=== PATIENT | male | born 1965 | race Caucasian/White ===

== ENCOUNTER 2025-01-09 13:13 | Emergency (ER) | payer OTHER, SELFPAY ==
[~2025-01-09] VITALS: Ht 170.2 cm; Wt 65.1 kg
[2025-01-09 13:25] VITALS: TEMP 97.5
[2025-01-09 18:58] VITALS: BP 172/98; O2SAT 100
== END 2025-01-09 22:00 | disposition left against medical advice (07) ==
LOC: M ED 13:13
DX: Z53.21 Procedure and treatment not carried out due to patient leaving prior to being seen by health care provider (principal)

== ENCOUNTER 2025-02-05 10:05 | Inpatient (IN) | payer MEDICAID, SELFPAY ==
[~2025-02-05] VITALS: Ht 175.3 cm; Wt 65.1 kg
[2025-02-05] MEDS ORDERED: OVERDOSE RESCUE KIT XX SCH (10:15)
[2025-02-05] MEDS: NS 500 ML IV ONE (11:20)
[2025-02-05 11:53] LABS: BASO % 0.3 % (0.0-1.0); EOS # 0.1 10^3/uL (0.0-0.5); EOS % 0.3 % (0.0-3.0); HEMATOCRIT 38.6 % (42.0-52.0); HEMOGLOBIN 12.1 g/dl (13.5-17.5); LYMPH % 6.8 % (24.0-44.0); MEAN CORPUSCULAR HEMOGLOBIN 28.1 pg (27.0-33.0); MEAN CORPUSCULAR HGB CONC 31.3 g/dl (32.0-36.5); MEAN CORPUSCULAR VOLUME 89.8 fl (80.0-96.0); MONO # 1.3 10^3/uL (0.0-0.8); MONO % 8.4 % (2.0-8.0); NEUTROPHILS # 12.5 10^3/uL (1.5-8.5); NEUTROPHILS % 83.7 % (36.0-66.0); PLATELET COUNT, AUTOMATED 364 10^3/uL (150-450); WHITE BLOOD COUNT 14.9 10^3/uL (4.0-10.0)
[2025-02-05 12:20] LABS: ALBUMIN 3.2 G/DL (3.2-5.2); ALKALINE PHOSPHATASE 90 U/L (40-129); ALT/SGPT 37 U/L (7.0-40); AST/SGOT 34 U/L (<34); BILIRUBIN,TOTAL 0.2 MG/DL (0.3-1.2); BLOOD UREA NITROGEN 19 MG/DL (9-23); CALCIUM LEVEL 8.4 MG/DL (8.3-10.6); CARBON DIOXIDE LEVEL 27 MMOL/L (20-31); CHLORIDE LEVEL 108 MMOL/L (98-107); CREATININE FOR GFR 0.93 MG/DL (0.70-1.30); GLOMERULAR FILTRATION RATE > 60.0 (>49); GLUCOSE, FASTING 65 MG/DL (74-106); MAGNESIUM LEVEL 2.1 MG/DL (1.8-2.4); POTASSIUM SERUM 4.5 MMOL/L (3.5-5.1); SODIUM LEVEL 143 MMOL/L (136-145); TOTAL PROTEIN 6.3 G/DL (5.7-8.2)
[2025-02-05 12:24] LABS: FREE THYROXINE INDEX 2.4 % (1.4-3.8); T UPTAKE 34.3 % (22.5-37.0); THYROXINE (T4) 7.1 UG/DL (4.5-10.9)
[2025-02-05 12:25] LABS: THYROID STIMULATING HORMONE 4.581 uIU/ML (0.55-4.78)
[2025-02-05] MEDS: [UNRECOGNIZED DRUG - OTHER] IV ONE (13:16)
[2025-02-05] MEDS: cefTRIAXone SOD 2 GM in DEXTROSE 5% (D5W) ADV/MINI-BAG 50 ML IV ONE (13:16)
[2025-02-05] MEDS: NS 0.9% IV ONE (13:16)
[2025-02-05] MEDS ORDERED: ISOVUE-370 76% 100ML VIAL As Ordered ONE (13:18)
[2025-02-05] MEDS ORDERED: HOME MED LIST COMPLETE! XX SCH (14:50)
[2025-02-05] MEDS: VANCOMYCIN HCL 1,250 MG, VIAL MATE ADAPTER 1 EACH in NS 250 ML IV ONE (15:08)
[2025-02-05 15:51] LABS: BARBITURATES URINE NEGATIVE (NEGATIVE); BENZODIAZEPINES URINE NEGATIVE (NEGATIVE); CANNABINOIDS URINE NEGATIVE (NEGATIVE); COCAINE METABOLITE URINE NEGATIVE (NEGATIVE); METHADONE URINE NEGATIVE (NEGATIVE); OPIATES URINE NEGATIVE (NEGATIVE); PHENCYCLIDINE URINE NEGATIVE (NEGATIVE)
[2025-02-05 15:53] LABS: AMPHETAMINES LEVEL URINE POSITIVE (NEGATIVE)
[2025-02-05] MEDS ORDERED: MAALOX 30 ML SUSP *UDC PO PRN (17:15)
[2025-02-05] MEDS ORDERED: MOM 30ML SUSPENSION UDC PO PRN (17:15)
[2025-02-05] MEDS: PIPERACILLIN/TAZOBACTAM SOD 4.5 GM in DEXTROSE 5% (D5W) ADV/MINI-BAG 50 ML IV SCH (18:00)
[2025-02-05 19:08] LABS: PROCALCITONIN 0.05 ng/ml
[2025-02-05] MEDS: LR 1,000 ML IV SCH (19:54)
[2025-02-05 20:51] VITALS: BP 104/64; TEMP 97.3; O2SAT 93
[2025-02-05] MEDS ORDERED: VANCOMYCIN HCL 1,000 MG, VIAL MATE ADAPTER 1 EACH in NS 250 ML IV SCH (22:00)
[2025-02-06] VITALS (7 sets, daily range): BP systolic 100–136; BP diastolic 62–88; TEMP 97–98.9; O2SAT 96–100
[2025-02-06] MEDS: BUPRENORPHINE/NALOXONE 2-0.5MG SUBLINGUAL TABLET(SUBOXONE) SL PRN (00:36)
[2025-02-06] MEDS: ACETAMINOPHEN 325 MG TAB PO PRN (00:39)
[2025-02-06] MEDS: CALCIUM CARBONATE 500 MG CHEW U/D PO ONE (01:09)
[2025-02-06 05:03] LABS: HEMATOCRIT 33.9 % (42.0-52.0); HEMOGLOBIN 10.6 g/dl (13.5-17.5); MEAN CORPUSCULAR HEMOGLOBIN 27.5 pg (27.0-33.0); MEAN CORPUSCULAR HGB CONC 31.3 g/dl (32.0-36.5); MEAN CORPUSCULAR VOLUME 88.1 fl (80.0-96.0); PLATELET COUNT, AUTOMATED 292 10^3/uL (150-450); RED BLOOD COUNT 3.85 10^6/uL (4.30-6.10); WHITE BLOOD COUNT 7.2 10^3/uL (4.0-10.0)
[2025-02-06 05:27] LABS: BLOOD UREA NITROGEN 15 MG/DL (9-23); CALCIUM LEVEL 7.8 MG/DL (8.3-10.6); CARBON DIOXIDE LEVEL 24 MMOL/L (20-31); CHLORIDE LEVEL 108 MMOL/L (98-107); CREATININE FOR GFR 0.88 MG/DL (0.70-1.30); GLOMERULAR FILTRATION RATE > 60.0 (>49); GLUCOSE, FASTING 130 MG/DL (74-106); POTASSIUM SERUM 4.5 MMOL/L (3.5-5.1); SODIUM LEVEL 142 MMOL/L (136-145)
[2025-02-06] MEDS: ASPIRIN 81MG ENTERIC TABLET PO SCH (08:37)
[2025-02-06] MEDS: ENOXAPARIN 40MG/0.4ML SYRINGE (J1650 PER 10MG) SC SCH (08:37)
[2025-02-06] MEDS: BUPRENORPHINE/NALOXONE 8-2MG SUBLINGUAL TABLET(SUBOXONE) SL SCH (11:53)
[2025-02-06 12:04] LABS: CHOLESTEROL LEVEL 136 MG/DL (<200); CHOLESTEROL RISK RATIO 2.72 (<5); HDL CHOLESTEROL 49.9 MG/DL (>40); LDL CHOLESTEROL 72.5 MG/DL (<100); NON-HDL-C 86.1 MG/DL; TRIGLYCERIDES LEVEL 68 MG/DL (<150)
[2025-02-06 14:27] LABS: HEMOGLOBIN A1c 5.8 % (4.0-6.0)
[2025-02-07 00:23] VITALS: BP 125/75; TEMP 98.3; O2SAT 96
[2025-02-07 05:01] VITALS: BP 127/84; TEMP 97.7; O2SAT 98
[2025-02-07 07:58] LABS: HEMATOCRIT 36.5 % (42.0-52.0); HEMOGLOBIN 11.7 g/dl (13.5-17.5); MEAN CORPUSCULAR HGB CONC 32.1 g/dl (32.0-36.5); MEAN CORPUSCULAR VOLUME 87.3 fl (80.0-96.0); PLATELET COUNT, AUTOMATED 298 10^3/uL (150-450); RED BLOOD COUNT 4.18 10^6/uL (4.30-6.10); WHITE BLOOD COUNT 4.6 10^3/uL (4.0-10.0)
[2025-02-07 07:59] VITALS: BP 127/62; TEMP 99.2; O2SAT 96
[2025-02-07 08:39] LABS: BLOOD UREA NITROGEN 10 MG/DL (9-23); CALCIUM LEVEL 8.5 MG/DL (8.3-10.6); CARBON DIOXIDE LEVEL 28 MMOL/L (20-31); CHLORIDE LEVEL 106 MMOL/L (98-107); CREATININE FOR GFR 0.89 MG/DL (0.70-1.30); GLOMERULAR FILTRATION RATE > 60.0 (>49); GLUCOSE, FASTING 120 MG/DL (74-106); POTASSIUM SERUM 4.6 MMOL/L (3.5-5.1); SODIUM LEVEL 142 MMOL/L (136-145)
[2025-02-07] MEDS ORDERED: BUPR1SUB5 SL ×2 (11:48→12:17)
[2025-02-07] MEDS ORDERED: AUGM500T34 PO (11:48)
[2025-02-07] MEDS ORDERED: ASPI81TAEC PO (11:48)
[2025-02-07] MEDS ORDERED: AMOX875T2 PO ×2 (11:54→12:19)
[2025-02-07 12:00] VITALS: BP 153/88; TEMP 98.2; O2SAT 96
[2025-02-07] MEDS ORDERED: NARC1SPR (22:46)
== END 2025-02-07 14:26 | disposition home or self-care (01) | DRG 816 ==
LOC: EDBD 10:05 → M ED 10:05 → M ED INP 18:10 → M PCU 20:46
PROVIDERS: ADMIT Student in an Organized Health Care Education/Training Program; ATTEND Student in an Organized Health Care Education/Training Program
PROC: B246ZZZ Ultrasonography of Right and Left Heart (ICD-10-PCS; principal; 2025-02-05)
DX: T40.1X1A Poisoning by heroin, accidental (unintentional), initial encounter (principal); R65.20 Severe sepsis without septic shock; J18.9 Pneumonia, unspecified organism; A41.9 Sepsis, unspecified organism; I48.0 Paroxysmal atrial fibrillation; I08.1 Rheumatic disorders of both mitral and tricuspid valves; I10 Essential (primary) hypertension; Z59.00 Homelessness unspecified; Z56.0 Unemployment, unspecified

== ENCOUNTER 2025-06-13 22:03 | Emergency (ER) | payer MEDICAID, OTHER ==
[~2025-06-13] VITALS: Ht 175.3 cm; Wt 59.2 kg
[~2025-06-13 22:03] MED LIST: AMOX875T2 PO; ASPI81TAEC PO; AUGM500T34 PO; BUPR1SUB5 SL; NARC1SPR
[2025-06-13] MEDS: NALOXONE INJ 0.4 MG/1 ML VIAL IV ONE (22:19)
[2025-06-13 22:42] LABS: VENOUS BASE EXCESS -2.1 (-2.0-2.0); VENOUS HCO3 28.7 MMOL/L (23.0-27.0); VENOUS O2 SATURATION 73.7 % (60.0-80.0); VENOUS PARTIAL PRESSURE CO2 79.7 mmHg (38.0-50.0); VENOUS PARTIAL PRESSURE O2 47.5 mmHg (30.0-50.0); VENOUS PH 7.174 UNITS (7.330-7.430); VENOUS STANDARD HCO3 22.2 MMOL/L; VENOUS TOTAL CO2 31.1 MMOL/L (24.0-28.0)
[2025-06-13 22:43] LABS: BASO # 0.1 10^3/uL (0.0-0.2); BASO % 0.7 % (0.0-1.0); EOS # 0.1 10^3/uL (0.0-0.5); EOS % 0.6 % (0.0-3.0); LYMPH # 3.2 10^3/uL (1.5-5.0); LYMPH % 37.0 % (24.0-44.0); MONO # 1.0 10^3/uL (0.0-0.8); MONO % 11.3 % (2.0-8.0); NEUTROPHILS # 4.4 10^3/uL (1.5-8.5); NEUTROPHILS % 50.3 % (36.0-66.0); PLATELET COUNT, AUTOMATED 379 10^3/uL (150-450)
[2025-06-13 23:14] LABS: ETHYL ALCOHOL (ETHANOL) < 0.003 % (0.000-0.010)
[2025-06-13 23:15] LABS: SALICYLATE LEVEL < 3.0 MG/DL (<30)
[2025-06-13 23:16] LABS: ALT/SGPT 27 U/L (7.0-40); AST/SGOT 30 U/L (<34); CALCIUM LEVEL 9.2 MG/DL (8.3-10.6); CARBON DIOXIDE LEVEL 31 MMOL/L (20-31); CHLORIDE LEVEL 107 MMOL/L (98-107); CREATININE FOR GFR 1.24 MG/DL (0.70-1.30); GLOMERULAR FILTRATION RATE 66.2 (>49); POTASSIUM SERUM 4.8 MMOL/L (3.5-5.1); SODIUM LEVEL 147 MMOL/L (136-145)
[2025-06-13 23:19] LABS: CPK CREATINE PHOSPHOKINASE 214 U/L (46-171)
[2025-06-14 00:10] LABS: VENOUS BASE EXCESS -3.0 (-2.0-2.0); VENOUS HCO3 22.5 MMOL/L (23.0-27.0); VENOUS O2 SATURATION 97.8 % (60.0-80.0); VENOUS PARTIAL PRESSURE CO2 41.9 mmHg (38.0-50.0); VENOUS PARTIAL PRESSURE O2 133.2 mmHg (30.0-50.0); VENOUS PH 7.348 UNITS (7.330-7.430); VENOUS STANDARD HCO3 22.0 MMOL/L; VENOUS TOTAL CO2 23.8 MMOL/L (24.0-28.0)
[2025-06-14 00:34] LABS: AMPHETAMINES LEVEL URINE NEGATIVE (NEGATIVE)
[2025-06-14 00:35] LABS: BARBITURATES URINE NEGATIVE (NEGATIVE); BENZODIAZEPINES URINE NEGATIVE (NEGATIVE); CANNABINOIDS URINE NEGATIVE (NEGATIVE); COCAINE METABOLITE URINE NEGATIVE (NEGATIVE); METHADONE URINE NEGATIVE (NEGATIVE); PHENCYCLIDINE URINE NEGATIVE (NEGATIVE)
[2025-06-14 00:41] LABS: OPIATES URINE POSITIVE (NEGATIVE)
[2025-06-14 03:30] VITALS: BP 142/90; TEMP 98; O2SAT 100
== END 2025-06-14 03:50 | disposition home or self-care (01) ==
LOC: M ED 22:03
DX: F19.10 Other psychoactive substance abuse, uncomplicated (principal); M50.30 Other cervical disc degeneration, unspecified cervical region
CPT/HCPCS: 70450; 71045; 72125; 80048; 80076; 80143; 80307; 82077; 82550; 82803; 84443; 85025; 93005; 93041; 94760; 96374; 99285; J2312

== ENCOUNTER 2025-06-26 20:30 | Emergency (ER) | payer OTHER ==
[~2025-06-26] VITALS: Ht 167.6 cm; Wt 60.0 kg
[2025-06-26 20:37] VITALS: TEMP 97.4
[2025-06-26] MEDS: NS (Normal Saline) 0.9% 1,000 ML IV ONE (20:51)
[2025-06-26] MEDS: NALOXONE INJ 0.4 MG/1 ML VIAL IV ONE (20:51)
[2025-06-26 21:14] LABS: BASO # 0.1 10^3/uL (0.0-0.2); BASO % 0.9 % (0.0-1.0); EOS # 0.1 10^3/uL (0.0-0.5); EOS % 1.1 % (0.0-3.0); LYMPH # 2.2 10^3/uL (1.5-5.0); LYMPH % 34.4 % (24.0-44.0); MONO # 0.7 10^3/uL (0.0-0.8); MONO % 11.0 % (2.0-8.0); NEUTROPHILS # 3.3 10^3/uL (1.5-8.5); NEUTROPHILS % 52.4 % (36.0-66.0); PLATELET COUNT, AUTOMATED 277 10^3/uL (150-450)
[2025-06-26 23:03] LABS: ALT/SGPT 28 U/L (7.0-40); AST/SGOT 26 U/L (<34); CALCIUM LEVEL 8.6 MG/DL (8.3-10.6); CARBON DIOXIDE LEVEL 29 MMOL/L (20-31); CHLORIDE LEVEL 107 MMOL/L (98-107); CPK CREATINE PHOSPHOKINASE 149 U/L (46-171); CREATININE FOR GFR 0.91 MG/DL (0.70-1.30); ETHYL ALCOHOL (ETHANOL) < 0.003 % (0.000-0.010); GLOMERULAR FILTRATION RATE > 90.0 (>49); POTASSIUM SERUM 4.7 MMOL/L (3.5-5.1); SALICYLATE LEVEL < 3.0 MG/DL (<30); SODIUM LEVEL 145 MMOL/L (136-145)
[2025-06-26] MEDS: NALOXONE INJ 0.4 MG/1 ML VIAL IV STA (23:25)
[2025-06-27 00:30] VITALS: BP 129/66; O2SAT 98
[2025-06-27 01:03] LABS: BARBITURATES URINE NEGATIVE (NEGATIVE); BENZODIAZEPINES URINE NEGATIVE (NEGATIVE); COCAINE METABOLITE URINE NEGATIVE (NEGATIVE); METHADONE URINE NEGATIVE (NEGATIVE); OPIATES URINE NEGATIVE (NEGATIVE); PHENCYCLIDINE URINE NEGATIVE (NEGATIVE)
[2025-06-27 01:04] LABS: AMPHETAMINES LEVEL URINE POSITIVE (NEGATIVE); CANNABINOIDS URINE POSITIVE (NEGATIVE)
== END 2025-06-27 01:03 | disposition home or self-care (01) ==
LOC: M ED 20:30
DX: F19.10 Other psychoactive substance abuse, uncomplicated (principal); I10 Essential (primary) hypertension; F32.A Depression, unspecified
CPT/HCPCS: 80048; 80076; 80143; 80307; 82077; 82550; 84443; 85025; 93005; 93041; 94760; 96361; 96374; 96375; 99285; J2312

== ENCOUNTER 2025-07-09 14:20 | Emergency (ER) | payer OTHER ==
[~2025-07-09] VITALS: Ht 172.7 cm; Wt 65.7 kg
[2025-07-09] MEDS: NS (Normal Saline) 0.9% 1,000 ML IV ONE (14:35)
[2025-07-09] MEDS ORDERED: NALOXONE 2 MG/2 ML SYRINGE As Ordered ONE (14:43)
[2025-07-09 14:44] LABS: BASO # 0.1 10^3/uL (0.0-0.2); BASO % 1.3 % (0.0-1.0); EOS # 0.1 10^3/uL (0.0-0.5); EOS % 0.7 % (0.0-3.0); LYMPH # 3.6 10^3/uL (1.5-5.0); LYMPH % 53.0 % (24.0-44.0); MONO # 0.6 10^3/uL (0.0-0.8); MONO % 8.6 % (2.0-8.0); NEUTROPHILS # 2.4 10^3/uL (1.5-8.5); NEUTROPHILS % 36.3 % (36.0-66.0); PLATELET COUNT, AUTOMATED 396 10^3/uL (150-450)
[2025-07-09] MEDS: NALOXONE 2 MG/2 ML SYRINGE IV STA (14:44)
[2025-07-09 15:15] LABS: ETHYL ALCOHOL (ETHANOL) < 0.003 % (0.000-0.010)
[2025-07-09 15:17] LABS: ALT/SGPT 25 U/L (7.0-40); AST/SGOT 31 U/L (<34); CALCIUM LEVEL 8.9 MG/DL (8.3-10.6); CARBON DIOXIDE LEVEL 31 MMOL/L (20-31); CHLORIDE LEVEL 106 MMOL/L (98-107); CREATININE FOR GFR 1.06 MG/DL (0.70-1.30); GLOMERULAR FILTRATION RATE 79.9 (>49); POTASSIUM SERUM 4.1 MMOL/L (3.5-5.1); SODIUM LEVEL 146 MMOL/L (136-145)
[2025-07-09 15:22] LABS: CPK CREATINE PHOSPHOKINASE 165 U/L (46-171)
[2025-07-09 18:52] VITALS: TEMP 97.2
[2025-07-09 20:13] LABS: BARBITURATES URINE NEGATIVE (NEGATIVE); COCAINE METABOLITE URINE NEGATIVE (NEGATIVE); METHADONE URINE NEGATIVE (NEGATIVE)
[2025-07-09 20:14] LABS: AMPHETAMINES LEVEL URINE NEGATIVE (NEGATIVE); BENZODIAZEPINES URINE NEGATIVE (NEGATIVE); PHENCYCLIDINE URINE NEGATIVE (NEGATIVE)
[2025-07-09 20:15] LABS: CANNABINOIDS URINE POSITIVE (NEGATIVE); OPIATES URINE POSITIVE (NEGATIVE)
[2025-07-09 23:00] VITALS: BP 128/86; O2SAT 98
== END 2025-07-09 23:32 | disposition home or self-care (01) ==
LOC: EDBD 14:20 → M ED 14:20
DX: F15.120 Other stimulant abuse with intoxication, uncomplicated (principal); I10 Essential (primary) hypertension
CPT/HCPCS: 70450; 71045; 72125; 80048; 80076; 80307; 82077; 82550; 83605; 84443; 85025; 93005; 93041; 94760; 96361; 96374; 96375; 99285; J2060; J2312

== ENCOUNTER 2025-07-26 14:16 | Emergency (ER) | payer OTHER ==
[~2025-07-26] VITALS: Ht 167.6 cm; Wt 61.4 kg
[2025-07-26] MEDS: OLANZapine ORAL DISINTEGRATING TAB 5MG PO ONE (15:50)
[2025-07-26 17:07] LABS: PLATELET COUNT, AUTOMATED 388 10^3/uL (150-450)
[2025-07-26 17:39] LABS: ALT/SGPT 25 U/L (7.0-40); AST/SGOT 34 U/L (<34); CALCIUM LEVEL 9.3 MG/DL (8.3-10.6); CARBON DIOXIDE LEVEL 30 MMOL/L (20-31); CHLORIDE LEVEL 110 MMOL/L (98-107); CREATININE FOR GFR 1.13 MG/DL (0.70-1.30); GLOMERULAR FILTRATION RATE 74.0 (>49); POTASSIUM SERUM 4.7 MMOL/L (3.5-5.1); SALICYLATE LEVEL < 3.0 MG/DL (<30); SODIUM LEVEL 150 MMOL/L (136-145)
[2025-07-26 17:41] LABS: ETHYL ALCOHOL (ETHANOL) < 0.003 % (0.000-0.010)
[2025-07-26 18:24] LABS: BARBITURATES URINE NEGATIVE (NEGATIVE); BENZODIAZEPINES URINE NEGATIVE (NEGATIVE); COCAINE METABOLITE URINE NEGATIVE (NEGATIVE); METHADONE URINE NEGATIVE (NEGATIVE); PHENCYCLIDINE URINE NEGATIVE (NEGATIVE)
[2025-07-26 18:31] LABS: AMPHETAMINES LEVEL URINE POSITIVE (NEGATIVE); CANNABINOIDS URINE POSITIVE (NEGATIVE); OPIATES URINE POSITIVE (NEGATIVE)
[2025-07-27] MEDS ORDERED: HOME MED LIST COMPLETE! XX SCH (00:15)
[2025-07-27 01:49] VITALS: BP 134/83; TEMP 98; O2SAT 97
== END 2025-07-27 01:50 | disposition home or self-care (01) ==
LOC: M ED 14:16
DX: F15.10 Other stimulant abuse, uncomplicated (principal)

== ENCOUNTER 2025-07-31 19:08 | Emergency (ER) | payer OTHER ==
[2025-07-31] MEDS: OLANZapine INTRAMUSCULAR 10MG VIAL IM STA (19:33)
[2025-07-31] MEDS: NS (Normal Saline) 0.9% 1,000 ML IV ONE ×2 (19:35→20:58)
[2025-07-31 20:09] LABS: BASO # 0.1 10^3/uL (0.0-0.2); BASO % 0.5 % (0.0-1.0); EOS # 0.0 10^3/uL (0.0-0.5); EOS % 0.1 % (0.0-3.0); LYMPH # 2.9 10^3/uL (1.5-5.0); LYMPH % 16.8 % (24.0-44.0); MONO # 1.8 10^3/uL (0.0-0.8); MONO % 10.5 % (2.0-8.0); NEUTROPHILS # 12.4 10^3/uL (1.5-8.5); NEUTROPHILS % 71.8 % (36.0-66.0); PLATELET COUNT, AUTOMATED 466 10^3/uL (150-450)
[2025-07-31 20:17] LABS: ETHYL ALCOHOL (ETHANOL) < 0.003 % (0.000-0.010)
[2025-07-31 20:18] LABS: SALICYLATE LEVEL < 3.0 MG/DL (<30)
[2025-07-31 20:23] LABS: ALT/SGPT 39 U/L (7.0-40); AST/SGOT 38 U/L (<34); CALCIUM LEVEL 10.7 MG/DL (8.3-10.6); CARBON DIOXIDE LEVEL 31 MMOL/L (20-31); CHLORIDE LEVEL 110 MMOL/L (98-107); CPK CREATINE PHOSPHOKINASE 412 U/L (46-171); CREATININE FOR GFR 1.42 MG/DL (0.70-1.30); GLOMERULAR FILTRATION RATE 56.2 (>49); POTASSIUM SERUM 5.8 MMOL/L (3.5-5.1); SODIUM LEVEL 153 MMOL/L (136-145)
[2025-07-31 20:25] VITALS: TEMP 98.3
[2025-07-31 23:50] LABS: CALCIUM LEVEL 8.7 MG/DL (8.3-10.6); CARBON DIOXIDE LEVEL 23.0 MMOL/L (20-31); CHLORIDE LEVEL 115.0 MMOL/L (98-107); CREATININE FOR GFR 1.15 MG/DL (0.70-1.30); GLOMERULAR FILTRATION RATE 72.4 (>49); POTASSIUM SERUM 4.8 MMOL/L (3.5-5.1); SODIUM LEVEL 150.0 MMOL/L (136-145)
[2025-08-01 01:03] VITALS: BP 129/80; O2SAT 97
== END 2025-08-01 01:05 | disposition home or self-care (01) ==
LOC: M ED 19:08 → EDBD 19:08 → M ED 08-01 01:05
DX: F19.10 Other psychoactive substance abuse, uncomplicated (principal); I10 Essential (primary) hypertension; F41.9 Anxiety disorder, unspecified
CPT/HCPCS: 80048; 80076; 80143; 82077; 82550; 84443; 85025; 93005; 93041; 94760; 96361; 96372; 99285; J2359